=== PATIENT | male | born 1985 | race Caucasian/White ===

== ENCOUNTER 2017-02-25 07:10 | Emergency (ER) | payer OTHER ==
[~2017-02-25] VITALS: Ht 177.8 cm; Wt 77.1 kg
[~2017-02-25 07:10] MED LIST: CLON2TAB PO
[2017-02-25 07:16] VITALS: BP 159/99
--- NOTE | 2017-02-25 07:22 | NUR ---
Patient to bed 08.
--- NOTE | 2017-02-25 07:23 | NUR ---
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 I THINK THAT TRIGGERED IT"; PT C/O NAUSEA, STATES HAD 1 EPISODE OF VOMITING X LAST NIGHT, BUT DENIES DIARRHEA AT THIS TIME; ABDOMEN SOFT, NON-TENDER, ACTIVE BOWEL SOUNDS X 4 QUADRANTS; PT AA&OX4, PERRLA, BL LUNG SOUNDS CLEAR, RR EVEN/UNLABORED, SKIN IS WARM/DRY/INTACT; PT RESTING IN BED W/ HOB ELEVATED AND IN LOWEST POSITION; POSITIONED FOR COMFORT; ER MD MADE AWARE OF STATUS. WILL CONTINUE TO MONITOR.
--- NOTE | 2017-02-25 07:24 | NUR ---
Dr. Hatfield evaluating patient at bedside.
--- NOTE | 2017-02-25 07:24 | NUR ---
Alondra valenzuela in EDM - 02/25/17 at 0725 by [facility] CHANCE IRWIN EVALUATING PT AT BEDSIDE.
[2017-02-25] MEDS ORDERED: KETOROLAC 30 MG/ML VIAL IM ONE (07:30)
[2017-02-25] MEDS ORDERED: HYDROcodone/APAP 5/325 MG 1 TAB TAB PO ONE (08:00)
[2017-02-25 08:15] VITALS: BP 131/72
--- NOTE | 2017-02-25 08:15 | NUR ---
Patient discharged with v/s stable. Written and verbal after care instructions given and explained. Patient alert, oriented and verbalized understanding of instructions. Ambulatory with steady gait. All questions addressed prior to discharge. ID band removed. Patient advised to follow up with PMD. Rx of NORCO 5MG-325MG TAB given. Patient educated on indication of medication including possible reaction and side effects. Opportunity to ask questions provided and answered.
== END 2017-02-25 08:15 | disposition home or self-care (01) ==
LOC: MED 07:10
CPT/HCPCS: 96372; 99283; J1885